=== PATIENT | male | born 1960 | race Caucasian/White ===

== ENCOUNTER 2016-11-15 06:56 | Day surgery (SDC) | payer OTHER ==
[2016-11-13 14:38] VITALS: BMI 26.9
[2016-11-15] MEDS ORDERED: IBUPROFEN 800 MG/8 ML IJ IVPB PRN (08:52)
--- NOTE | 2016-11-15 08:52 | HP ---
History & Physical Update - History History: No Change - Physical Physical: No Change - Assessment Assessment: No Change - Plan Plan: No Change
[2016-11-15] MEDS ORDERED: ACETAMINOPHEN 1000 MG/100 ML VIAL (NON FORMULARY) IVPB ONE (09:00)
[2016-11-15] MEDS ORDERED: ONDANSETRON 4 MG/2 ML VIAL IVPUSH PRN (09:00)
[2016-11-15] MEDS ORDERED: LACTATED RINGERS SOLUTION 1,000 ML IV SCH (09:00)
[2016-11-15] MEDS ORDERED: oxyCODONE HCL 5 MG TABLET PO PRN (09:00)
[2016-11-15] MEDS ORDERED: MIDAZOLAM HCL 2 MG/2 ML SINGLE DOSE VIAL ONE (09:29)
[2016-11-15] MEDS ORDERED: PROPOFOL 20 ML ONE (09:36)
[2016-11-15] MEDS ORDERED: ceFAZolin SODIUM 1 GM VIAL IVPB ONE (09:40)
[2016-11-15] MEDS ORDERED: DEXAMETHASONE SOD PHOSPHATE 4 MG/1 ML VIAL ONE (09:40)
[2016-11-15] MEDS ORDERED: ceFAZolin SODIUM 1 GM VIAL ONE (09:59)
[2016-11-15] MEDS ORDERED: ACETAMINOPHEN INJECTION 100 ML IVPB ONE (10:42)
--- NOTE | 2016-11-15 10:45 | EKG ---
Test Reason : Blood Pressure : / mmHG Vent. Rate : 067 BPM Atrial Rate : 067 BPM P-R Int : 168 ms QRS Dur : 100 ms QT Int : 388 ms P-R-T Axes : 000 052 024 degrees QTc Int : 409 ms NORMAL SINUS RHYTHM POSSIBLE LEFT ATRIAL ENLARGEMENT BORDERLINE ECG NO PREVIOUS ECGS AVAILABLE Confirmed by BHARTI DOAN, CATHY ([id number]) on 11/15/2016 10:44:45 AM Referred By: Osmani Denny Confirmed By:CATHY HAY MD
--- NOTE | 2016-11-15 10:47 | OP ---
DATE OF OPERATION: 11/15/2016 PREOPERATIVE DIAGNOSES: Gross hematuria and benign prostatic hypertrophy. POSTOPERATIVE DIAGNOSES: Gross hematoma, benign prostatic hypertrophy, and bladder stones. ANESTHESIA: General. SURGEON: Osmani Denny MD PROCEDURE: Cystoscopy and removal of bladder stones. SPECIMENS: Bladder stones. FINDINGS: Enlarged prostate and bladder stones. DRAINS: None. PREOPERATIVE INDICATIONS: The patient is a 56-year-old male with a history of BPH and gross hematuria. He is also a smoker. was negative. He has a history of stones as well. He comes in today for cystoscopy. OPERATION: The patient was brought to the operating room and placed on the table in the supine position. He was given intravenous antibiotics and placed in the modified lithotomy position. The groin was prepped and draped sterilely. Cystoscopy was performed. The distal urethra appeared to be normal. The sphincter was seen. The prostate had obstructive lateral lobes and the lining of the prostate was very vascular. The bladder itself had some mild trabeculations throughout. No tumors were seen. Both UOs were visualized with clear efflux. Two small bladder stones were seen. These were pulled out with a stone basket and sent off to Pathology for analysis. The bladder was emptied. Lidocaine jelly was infused per urethra. The patient was woken up. OSMANI DENNY M.D. [id number]
[2016-11-15] MEDS ORDERED: oxyCODONE HCL 5 MG TABLET ONE ×2 (15:07→15:36)
[2016-11-15] MEDS ORDERED: PHENAZOPYRIDINE HCL 100 MG TABLET (FP) ONE (15:17)
[2016-11-15 18:08] VITALS: BP 141/78; PULSE 87
[2016-11-15 19:46] VITALS: TEMP 97.8
--- NOTE | 2016-11-16 12:57 | PATH ---
Surgical Pathology Report Patient Name: LILLIANA MILLS [facility]. Rec. #: [id number] /Age/Gender: 1960 (Age: 56) / M Account: [id number] Location: [facility] SURGICAL Taken: 11/15/2016 Received: 11/15/2016 Reported: 11/16/2016 Physicians: Osmani Denny M.D. Specimen(s) Received BLADDER STONE Clinical History Gross hematuria Final Diagnosis BLADDER STONE, EXTRACTION: CALCULUS (GROSS EXAM). SPECIMEN SENT FOR CHEMICAL ANALYSIS. Electronically Signed Dhaval Figueroa M.D. Gross Description Received fresh labeled "bladder stone" are 3 brown, irregular calculi ranging from 0.3-0.6 cm in greatest dimension. The specimen is sent for chemical analysis. 11/15/201611/15/2016
[2016-11-27 14:11] LABS: CA OXALATE DIHYDRATE 10 % (.); COLOR Brown (.)
== END 2016-11-15 18:08 | disposition home or self-care (01) ==
LOC: JASU-SURG 06:56
PROVIDERS: ATTEND Urology
PROC: 0TCB8ZZ Extirpation of Matter from Bladder, Via Natural or Artificial Opening Endoscopic (ICD-10-PCS; principal; 2016-11-15 08:30)
DX: N21.0 Calculus in bladder (principal); R31.0 Gross hematuria; N40.0 Benign prostatic hyperplasia without lower urinary tract symptoms
CPT/HCPCS: 36415; 82360; 88300-TC; 93005; 93010; 94760